=== PATIENT | male | born 1945 | race Caucasian/White ===

== ENCOUNTER 2025-09-18 05:52 | Day surgery (SDC) | payer MEDICARE, OTHER, SELFPAY ==
[2025-09-18] VITALS (10 sets, daily range): BP systolic 135–151; BP diastolic 65–92; BMI 25.6
[2025-09-18] MEDS: NORMOSOL-R/PLASMALYTE-A 1000 IV (06:20)
[2025-09-18] MEDS: TYLENOL 1000 MG PO (06:31)
--- NOTE | 2025-09-18 06:55 | W.SUR.PREOP ---
Pre-Operative Surgical Note
-
I have examined this patient prior to the performance of the scheduled procedure.
The patient's condition is unchanged from the time of the current History and
Physical and the patient is able to undergo the scheduled procedure.
--- NOTE | 2025-09-18 08:50 | W.IMMPOSTOP ---
Addendum entered and electronically signed by Paulino Pozo MD 09/18/25 08:59:
#[id number]
Original Note:
Surgical Immed Post Op Note
-
Primary Surgeon: Paulino Pozo MD
Assisting Surgeon: Akua Carnes NP
Pre-op Diagnosis: Right inguinal hernia
Post-op Diagnosis: Right inguinal hernia; indirect
Procedure Performed: Robotic assisted laparoscopic DENG repair right inguinal hernias mesh; 3D max large mid weight
Anesthesia Type: GETA +0.25% Marcaine with epi
Specimen / Cultures: None
Estimated Blood Loss: 6 mL
Complications: None immediate
Operative Findings: Right inguinal hernia, indirect. Moderate scarring from history of prostatectomy but preperitoneal plane able to be fully established for exposure of the myopectineal orifice. Small lipoma of cord structures reduced and excised
to facilitate mesh placement. 3D max large mid weight mesh repair secured to Constantin's ligament with 2-0 Vicryl stitch x 2.
The assistance of Akua Carnes NP was required due to the complexity of the procedure. During the procedure Akua Carnes NP assisted with port placement, robotic instrumentation and suture material exchanges, and closure of the surgical
incision sites. I was present for the entirety of the operative procedure.
[2025-09-18] MEDS: MOTRIN 600 MG PO (09:59)
== END 2025-09-18 10:50 | disposition home or self-care (01) ==
LOC: SDS 05:52
PROVIDERS: ATTENDING PHYSICIAN Surgery; FAMILY PHYSICIAN Family Medicine
DX: K40.90 Unilateral inguinal hernia, without obstruction or gangrene, not specified as recurrent (principal); D17.9 Benign lipomatous neoplasm, unspecified
CPT/HCPCS: 49650; 93005; C1781